=== PATIENT | male | born 1985 ===

== ENCOUNTER 2025-05-05 16:04 | Emergency (ER) | payer OTHER, SELFPAY ==
[2025-05-05 16:12] VITALS: BP 256/154
[2025-05-05 16:14] VITALS: BP 256/154
[2025-05-05 16:40] LABS: % Eosinophils 1.5 % (0-6); % Immature Granulocytes 0.3 % (0-0.5); % Lymphocytes 27.3 % (20.5-51.1); % Monocytes 11.6 % (1.7-9.3); % Neutrophils 58.3 % (42.2-75.2); Absolute Basophils 0.1 10^3/uL (0-0.2); Absolute Eosinophils 0.1 10^3/uL (0-0.7); Absolute Lymphocytes 1.6 10^3/uL (1.2-3.4); Absolute Monocytes 0.7 10^3/uL (0.1-0.6); Absolute Neutrophils 3.5 10^3/uL (1.4-6.5); Hematocrit 39.2 % (39.0-52.0); Hemoglobin 13.9 g/dL (13.0-18.0); Mean Corp Hgb Conc. 35.5 g/dL (33.0-37.0); Mean Corpuscular Hgb 30.1 pg (27.0-31.0); Mean Corpuscular Volume 84.8 fL (80.0-94.0); Mean Platelet Volume 9.8 fL (7.4-10.4); Nucleated Red Blood Cells % 0 % (-); Platelet Count 349 10^3/uL (130-400); Red Blood Cell Count 4.62 10^6/uL (4.70-6.10); Red Cell Dist. Width 11.9 % (11.5-14.5)
[2025-05-05 17:01] LABS: ALT (SGPT) 32 U/L (0-50); AST (SGOT) 33 U/L (17-59); Albumin 4.9 g/dl (3.5-5.0); Alkaline Phosphatase 76 U/L (38-126); Blood Urea Nitrogen 17 mg/dl (9-20); Calcium 9.9 mg/dl (8.4-10.2); Carbon Dioxide 26 mmol/L (22-30); Chloride 111 mmol/L (98-107); Glucose 110 mg/dl (70-99); Potassium 4.1 mmol/L (3.5-5.1); Sodium 143 mmol/L (135-145); Total Bilirubin 0.4 mg/dl (0.2-1.3); Total Protein 7.8 g/dl (6.3-8.2); eGFR > 60.00
[2025-05-05 18:39] VITALS: BMI 37.7
[2025-05-05 18:41] VITALS: BP 185/124
[2025-05-05 19:00] VITALS: BP 176/124
[2025-05-05 19:44] VITALS: BP 178/112
--- NOTE | 2025-05-05 19:57 | ED.GENMED ---
History of Present Illness
General
Chief Complaint: Blood Pressure Problem
Source: patient
Time Seen by Provider: 05/05/25 18:59
History of Present Illness
History of Present Illness:
40-year-old male with no significant past medical history presents to the emergency department for evaluation of elevated blood pressure. Patient notes that he broke his left middle finger on Saturday, went to local urgent care who noted patient
blood pressure was elevated at that time and was told to monitor the blood pressure. Went back to the urgent care today where BP was still elevated, contacted primary care provider who recommended patient come to the ER due to how high the blood
pressure was. Patient maintains that he is asymptomatic, denies chest pain, shortness of breath, headaches, visual changes, focal weakness or numbness, abdominal pain or any other concerns. He does note recent stressors including a recent move,
new projects at work as well as had just returned home from a vacation with his entire family. Social history was noted for occasional alcohol use. Family history was noted for both mother and father having elevated blood pressure.
Past History
Past History
ED Past Medical History: None
ED Past Surgical History: Orthopedic
Social History
Tobacco: Non-smoker
Alcohol: Occasional
Drug: None
Personal:
Living: with family
Employment: Employed
Review of Systems
Review of Systems
All Other Systems: ROS reviewed and negative except as documented in HPI and ROS
Phy Exam
Physical Exam
Physical Exam:
GENERAL: Alert , in no apparent distress
EYE: conjunctiva clear
NECK: Supple, no significant adenopathy.
ENT: o/p clr, mmm.
CARDIAC: Regular rate and rhythm
LUNGS: Clear breath sounds bilaterally, no acute respiratory distress, no wheezes/rales/rhonchi
NEUROLOGICAL: Alert and oriented
SKIN: Warm and dry, skin intact.
MUSCULOSKELETAL: well perfused.
PSYCH: Normal and appropriate interaction.
Scores
Heart Failure Risk
Heart Failure Risk Score: Not Applicable
Heart Score for Chest Pain Patients
STEMI patient?: Not applicable
Withdrawal Assessment of Alcohol
Withdrawal Assessment Completed?: Not applicable
Course
Orders/Labs/Results
Orders:
Orders
05/05/25 16:20
EKG [Electrocardiogram (*1)] Stat
Reason for Study: Other
Other Reason for Exam: high blood pressure
EKG- Treatment ONCE
05/05/25 16:27
CMP [Comprehensive Metabolic Panel] Stat
Complete Blood Count/With Diff Stat
Abnormal Lab Results
05/05/25
16:27
RBC 4.62 L 10^6/uL
(4.70-6.10)
Absolute Monos (auto) 0.7 H 10^3/uL
(0.1-0.6)
Monocytes % 11.6 H %
(1.7-9.3)
Chloride 111 H mmol/L
(98-107)
Creatinine 1.4 H mg/dL
(0.7-1.3)
Glucose 110 H mg/dl
(70-99)
05/05/25 16:27
05/05/25 16:27
Vital Signs
Initial and Last Documented VS:
Initial Vital Signs
Temp Pulse Resp BP Pulse Ox
98.2 F 80 18 256/154 98
05/05/25 16:12 05/05/25 16:12 05/05/25 16:12 05/05/25 16:12 05/05/25 16:12
Last Documented Vital Signs
Temp Pulse Resp BP Pulse Ox
98.2 F 69 13 178/112 95
05/05/25 16:14 05/05/25 19:45 05/05/25 19:45 05/05/25 19:44 05/05/25 19:45
MDM/Problems Addressed
Differential Diagnosis Includes:
Asymptomatic hypertension, kidney disease, no symptoms to suggest hypertensive urgency or emergency
MDM/Problems Addressed:
40-year-old male presenting to the ER for evaluation at the request of local urgent care and his primary care provider for significantly elevated blood pressure. Based off of patient's blood pressures I do suspect he has undiagnosed hypertension.
He is asymptomatic here. Labs and EKG were done on arrival which do show a creatinine of 1.4, nonischemic EKG. Patient remains asymptomatic, at time of my exam patient blood pressure improved to 178/112. Will send patient home on a low-dose of
losartan 25 mg daily, advise he keep logs of his blood pressure. Will notify patient's primary care provider via [facility] text about patient's workup and need for close outpatient monitoring.
*Pulse Oximetry
Patient hypoxic: no
*EKG
Heart Rate: 77
Rate: normal
Rhythm: sinus arrhythmia
[place]: normal axis
Ischemia: no ischemia
*Human Resource Management Instructor Interpretation
Rate: normal
Rhythm: sinus
*Critical Care Note
Total Time (30-74mins, 75-104mins- exclusive of procedures): Not Applicable
Patient Management
Discussion with other providers: PCP
Escalation/DeEscalation of care consider admission/obs:
Patient's primary care provider notified. Patient aware of return precautions to the ER. Stable for discharge.
ED Attending Note
-
Portions of this chart may have been created with voice recognition software.� Occasional wrong word or��sound alike� substitutions may have occurred due to the inherent limitations of voice recognition software.
Discharge Plan
Departure
Patient Disposition: Home (Routine Discharge)
Date of Disposition: 05/05/25
Time of Disposition: 19:58
Patient with high blood pressure during this ER visit?: Yes
Discharge Problem:
Hypertension
Instructions: High Blood Pressure (DC)
Prescriptions:
New
losartan 25 mg tablet
25 mg PO DAILY Qty: 30 0RF
Referrals:
Ran Phan, DO [Family Provider, Family Practice]
Interventions
Interventions:
*Risk Screen - Suicide Last Done: 05/05/25 16:18
*General Assessment Last Done: 05/05/25 18:40
*Neglect/Abuse Screening Last Done: 05/05/25 16:18
*ED- Fall Risk Assessment Last Done: 05/05/25 18:40
*ED COVID-19 Vaccine History Last Done: 05/05/25 18:40
*Nursing Disposition Last Done: 05/05/25 20:05
ED- Cardiac Assessment Last Done: 05/05/25 18:43
ED- Neurological Assessment Last Done: 05/05/25 18:43
ED- Pulmonary Assessment Last Done: 05/05/25 18:43
Discharge Date and Time
Print Language: TELUGU
== END 2025-05-05 20:10 | disposition home or self-care (01) ==
LOC: EMR 16:04
PROVIDERS: EMERGENCY PHYSICIAN Emergency Medicine; FAMILY PHYSICIAN Family Medicine
DX: I10 Essential (primary) hypertension (principal); I49.8 Other specified cardiac arrhythmias
CPT/HCPCS: 99284; 80053; 85025; 93005